=== PATIENT | male | born 1965 | race Caucasian/White ===

== ENCOUNTER 2021-10-28 00:22 | Day surgery (SDC) | payer OTHER, SELFPAY ==
[2021-10-11 13:31] VITALS: BMI 27.3
--- NOTE | 2021-10-12 09:17 | PC.NURSE ---
Addendum entered by Rosmery Rubio RN 10/12/21 09:18: Also instructed patient to take Levothyroxine with sip of water on a.m. of colonoscopy 10/28/21. Original Note: Patient states he has not received prep instructions in the mail. Instructed patient on printing instructions from website and patient voiced his understanding and ability to print instructions.
[2021-10-28 08:25] VITALS: BP 131/100; PULSE 97; RESP 18; TEMP 36.2; O2SAT 99
[2021-10-28] MEDS: LACTATED RINGERS 1,000 ML 150 ML IV CONT (08:47)
--- NOTE | 2021-10-28 08:55 | P.CONGI_ITS ---
Assessment and Plan Assessment and plan (1) Internal and external prolapsed hemorrhoids: Code(s): K64.8 - Other hemorrhoids Status: Acute Assessment and Plan: Hemorrhoids are currently followed by surgery. Recommend high-fiber diet. Anusol or preparation H may help soothe any discomfort. (2) History of colon polyps: Code(s): Z86.010 - Personal history of colonic polyps Status: Acute Assessment and Plan: Patient gives a history of colon polyps removed from the colon 5 years ago at a different facility in [place]. Histology not available for review. Plan for follow-up colonoscopy now and consider this a 5 year intervals. GI Consult Note Consult date/time: 10/28/21 08:55 Reason for consult: History of colon polyps. HPI: Franck Turner is a 55 year old male Presents for neoplasia screening colonoscopy. Patient's current weight appetite and bowel movements are normal. Patient denies abdominal pain. He has had no bleeding. Family history is noncontributory. Patient has a history of a colon polyp removed in [place] 5 years ago. He presents today for follow-up colonoscopy. He reports his current weight appetite bowel movements are normal. He does have known internal and external hemorrhoids currently followed by surgery surgery is being con sidered in the future possibly. Review of Systems Review of Systems: Review of systems noncontributory. 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 Spiritual care concerns: No Meds Home Medications and Allergies Home Medications Medication Instructions Recorded Confirmed Type levothyroxine 75 mcg tablet 75 mcg PO DAILY #90 tabs 11/01/20 10/12/21 Rx aspirin 81 mg capsule 81 mg PO DAILY 09/29/21 10/12/21 History Allergies Allergy/AdvReac Type Severity Reaction Status Date / Time No Known Allergies Allergy Verified 10/28/21 08:21 Vital Signs Vital Signs - 24 hr 10/28/21 08:25 Temperature 97.1 F L Pulse Rate 97 Respiratory Rate 18 Blood Pressure 131/100 H Pulse Oximetry 99 Oxygen Delivery Room Air Exam Narrative: Physical exam reveals patient to be alert. Vital signs stable. HEENT exam is unremarkable. Patient is anicteric. Lungs are clear to auscultation and percussion. Heart is without murmur or extra sounds. Abdomen bowel sounds are present soft nontender with no organomegaly. Digital external rectal exam confirms external hemorrhoids.
[2021-10-28] MEDS: SIMETHICONE ORAL SUSPENSION 20 MG/0.3 ML 30 ML BOTTLE 0.6 ML IRRIGATION (09:51)
[2021-10-28 10:05] VITALS: BP 100/57; PULSE 69; RESP 16; O2SAT 94
[2021-10-28 10:15] VITALS: BP 108/68; PULSE 76; RESP 23; O2SAT 98
[2021-10-28 10:25] VITALS: BP 114/69; PULSE 72; RESP 20; O2SAT 100
== END 2021-10-28 10:36 | disposition home or self-care (01) ==
PROVIDERS: PCP Family Medicine; Visit Provider Internal Medicine Gastroenterology
PROC: 0DJD8ZZ Inspection of Lower Intestinal Tract, Via Natural or Artificial Opening Endoscopic (ICD-10-PCS; CPT 45378; principal; 2021-10-28 09:30)
DX: Z12.11 Encounter for screening for malignant neoplasm of colon (principal); K57.30 Diverticulosis of large intestine without perforation or abscess without bleeding; K64.8 Other hemorrhoids; K64.4 Residual hemorrhoidal skin tags; Z86.010 Personal history of colon polyps
CPT/HCPCS: 45378; J2704; J7120

== ENCOUNTER 2021-12-21 00:26 | Day surgery (SDC) | payer OTHER, SELFPAY ==
--- NOTE | 2021-12-05 17:14 | PM.SD2 ---
Same Day Admit/Disch: HPI History of Present Illness Chief complaint: internal and external hemorrhoids Narrative: Franck Turner is a 56 year old male Who has had hemorrhoids for a long time but recently they have been much larger seeming to have prolapsed more. They also are hygiene problem. He was seen in the office and found to have a stage III internal and external hemorrhoid with a large external component in the left lateral position. He recently had a colonoscopy on 10/28/2021. It was basically negative. He is taken to surgery now for hemorrhoidectomy. 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 Spiritual care concerns: No Same Day Admit/Disch: Med Pre-admit Medications Home Medications Medication Instructions Recorded Confirmed Type aspirin 81 mg capsule 81 mg PO DAILY 09/29/21 10/12/21 History levothyroxine 75 mcg tablet See Rx Instructions .Route 11/23/21 Rx .COMPLEX #90 tabs Exam Const: General: comfortable, no acute distress, alert and awake HENMT: Head: normocephalic and atraumatic Mouth: Yes Normal oral and palatal mucosa present Eyes: Conjunctivae: conjunctivae normal Pupils: Equal, round and reactive pupils present EOM: EOMs intact bilaterally Neck: Neck: normal visual inspection, no lymphadenopathy and nontender Resp: Effort & Inspection: normal respiratory effort Auscultation: clear to auscultation bilaterally Cardio: Rate: regular rate Rhythm: regular rhythm Heart sounds: no gallops, no murmurs and no rubs GI: Inspection: non-distended GI Palp: Yes Soft to palpation, No Tenderness to palpation present (GI), No Hepatomegaly present and No Splenomegaly present Rectal Exam: normal sphincter tone, External hemorrhoid(s) present, Internal hemorrhoid(s) present ( Stage III associated with a large external hemorrhoid left lateral positi) and No mass Skin: Lesions: no lesions Rashes: no rashes Neuro: General: no focal motor deficits and CN's II-XI intact bilaterally Cranial nerves: Yes Equal, round and reactive pupils present, Yes Bilaterally intact EOM present, Yes facial symmetry and Yes Midline tongue present Speech: normal speech Motor exam (neuro): 5/5 motor strength present throughout and Motor abnormalities not present Extrem: General: no clubbing, cyanosis or edema and edema Psych: Affect: normal affect Thought process: Normal thought process present Insight: Good insight present (Psych) DS: Summary Time Spent with Patient Time attestation: Total time spent providing and/or coordinating discharge services: DS: Admitting Diagnosis Discharge Date 12/08/2021 Admitting Diagnosis bleeding prolapsed internal and external hemorrhoids, single complex- plan to proceed with excision under anesthesia. The procedure the risks the benefits have been discussed. All questions were answered. He understands and agrees to go ahead. Discharge Plan Discharge Patient Disposition: Home, Self-Care Stand Alone Forms: General Discharge Instructions Discharge Medications: No Action aspirin 81 mg capsule 81 mg PO DAILY levothyroxine 75 mcg tablet See Rx Instructions .ROUTE .COMPLEX Qty: 90 0RF Dose Instruction: TAKE 1 TABLET BY MOUTH RIA
[2021-12-12 13:54] VITALS: BMI 26.6
--- NOTE | 2021-12-12 14:00 | PC.NURSE ---
Report to the Outpatient Waiting Room, entrance under the green pavilion located off [facility], at time _0630_ on date _[id number]_. OR Time: _0830_. - You and your visitor will be asked a series of questions to screen for COVID 19 for your protection. - Only one visitor is allowed at this time. - The patient visitor is requested to leave or wait in car when not with patient. - A mask is required within the hospital. Patients may have clear liquids (water, carbonated beverages, clear teas, apple juice) until 3 hours prior to surgery with a maximum of 20 ounces. - No food from midnight until time of surgery Take the following medications with a SIP of water the morning of surgery: ____Levothyroxine Medications to discontinue per physician None Date to take last dose Please no make-up, nail georgian, hairspray, perfume, deodorant, or body powder the day of surgery. No jewelry (including any body piercings) or valuables the day of surgery, leave them at home. Please take a shower or bath the night before, or the morning of, surgery with an antibacterial soap. Wear comfortable, loose fitting clothing. - Jewelry must be removed prior to entering the operating room. Rings and piercings that are not removed may be cut off. - The hospital will not accept responsibility for valuables. - Please leave all valuables, including medications, at home the day of surgery. If you are going home after surgery, a licensed furniture mover driver must drive you home. - NO public transportation without another adult. - We recommend that an adult stay with you for 24 hours following discharge. - We also recommend that you do not drive, make important decision, drink alcoholic beverages, or take any drugs that were not prescribed by your health care provider for at least 24 hours after your discharge time. Follow any additional instructions given to you from your surgeon. If you or anyone in your household have experienced Covid symptoms in the past week, please notify your surgeon or the nurse liaison at the phone number below for possible testing. Telephone instructions given to ___Patient and asked if any additional questions and then verbalized understanding. Patient advised to call surgeon office or pre surgery nurse liaison [phone] if any additional questions.
--- NOTE | 2021-12-20 10:26 | PM.SD2 ---
Same Day Admit/Disch: HPI History of Present Illness Chief complaint: internal and external hemorrhoids Narrative: Franck Turner is a 56 year old male who has noticed chronic protrusion with intermittent bleeding of tissue from his rectum. He was seen in the office and found to have prolapsed left lateral internal and external hemorrhoids. He is taken to surgery now for excision. 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 Spiritual care concerns: No Same Day Admit/Disch: Med Pre-admit Medications Home Medications Medication Instructions Recorded Confirmed Type aspirin 81 mg capsule 81 mg PO DAILY 09/29/21 12/21/21 History levothyroxine 75 mcg tablet See Rx Instructions .Route 11/23/21 12/21/21 Rx .COMPLEX #90 tabs hydrocodone 5 mg-acetaminophen 325 1 - 2 tablet PO Q6H PRN pain #25 12/21/21 Rx mg tablet tabs ketorolac 10 mg tablet 10 mg PO Q6H 4 days #16 tabs 12/21/21 Rx mineral oil 15 ml PO BID #473 mL 12/21/21 Rx psyllium husk (with sugar) 3.4 1 tbsp PO BID #60 packets 12/21/21 Rx gram oral powder packet (Metamucil (with sugar)) Exam Const: General: comfortable, no acute distress, alert and awake HENMT: Head: normocephalic and atraumatic Mouth: Yes Normal oral and palatal mucosa present Eyes: Conjunctivae: conjunctivae normal Pupils: Equal, round and reactive pupils present EOM: EOMs intact bilaterally Neck: Neck: normal visual inspection, no lymphadenopathy and nontender Resp: Effort & Inspection: normal respiratory effort Auscultation: clear to auscultation bilaterally Cardio: Rate: regular rate Rhythm: regular rhythm Heart sounds: no gallops, no murmurs and no rubs GI: Inspection: non-distended GI Palp: Yes Soft to palpation, No Tenderness to palpation present (GI), No Hepatomegaly present and No Splenomegaly present Rectal Exam: normal sphincter tone, External hemorrhoid(s) present, Internal hemorrhoid(s) present (Prolapsed left lateral internal and external hemorrhoids) and No mass Skin: Lesions: no lesions Rashes: no rashes Neuro: General: no focal motor deficits and CN's II-XI intact bilaterally Cranial nerves: Yes Equal, round and reactive pupils present, Yes Bilaterally intact EOM present, Yes facial symmetry and Yes Midline tongue present Speech: normal speech Motor exam (neuro): 5/5 motor strength present throughout and Motor abnormalities not present Extrem: General: no clubbing, cyanosis or edema and edema Psych: Affect: normal affect Thought process: Normal thought process present Insight: Good insight present (Psych) DS: Summary Time Spent with Patient Time attestation: Total time spent providing and/or coordinating discharge services: DS: Admitting Diagnosis Discharge Date 12/21/2021 Admitting Diagnosis Prolapsed bleeding internal and external hemorrhoids, single complex in the left lateral position. Plan to proceed with excision. Procedure the risks benefits have been discussed with the patient. He understands and agrees to proceed. DS: Discharge Diagnosis Discharge Diagnosis (1) Internal and external prolapsed hemorrhoids: Code(s): K64.8 - Other hemorrhoids Status: Acute Discharge Plan
[2021-12-21 06:40] VITALS: BP 134/87; PULSE 81; RESP 18; TEMP 36.3; O2SAT 99
--- NOTE | 2021-12-21 06:47 | P.PNAN_ITS ---
Anes - Initial Pre Proc Eval Procedure: Operation Date: 12/21/21 08:30 Proposed Procedures p Excision Single Complex Internal and External Hemorrhoids - Hernan Rodriguez MD Date/Time: 12/21/21 06:47 Surgeon: Hernan Rodriguez MD Pre Op Diagnosis: internal and external hemorrhoids Patient Data Age: 56 Gender: M Height: 1.75 m Weight: 81.8 kg Allergies Allergy/AdvReac Type Severity Reaction Status Date / Time No Known Allergies Allergy Verified 12/12/21 13:53 Home Medications Medication Instructions Recorded Confirmed Type aspirin 81 mg capsule 81 mg PO DAILY 09/29/21 12/12/21 History levothyroxine 75 mcg tablet See Rx Instructions .Route 11/23/21 12/12/21 Rx .COMPLEX #90 tabs Patient hx anesthesia problems: none Family hx anesthesia problems: none Results Review: All pre-operative results and documents have been reviewed as part of the pre- operative evaluation. 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 Informed Consent: The patient's anesthetic plan and its attendant risks and benefits were discussed with the patient/family/POA. Questions were solicited and answers provided to the satisfaction of the patient/family/POA.
[2021-12-21] MEDS: ACETAMINOPHEN 500 MG TABLET 1000 MG PO (07:01)
[2021-12-21] MEDS: KETOROLAC 15 MG/ML VIAL (*BKC) IV PUSH (07:01)
[2021-12-21] MEDS: LACTATED RINGERS 1,000 ML 30 ML IV CONT (07:01)
--- NOTE | 2021-12-21 07:46 | WPDHPUPDATE1 ---
History and Physical Update Update Date/Time: 12/21/21 07:46 History and Physical has been reviewed, including an updated exam of the patient. There are NO changes in the patient's condition. Risks, benefits, and alternatives have been discussed and questions answered. Patient agrees to proceed with procedure.
[2021-12-21] MEDS: ceFAZolin 2 GM/D5W 50 ML 2 GM/50 ML BAG IVPB (08:12)
[2021-12-21] MEDS: BUPIVACAINE HCL 0.5% PF 30 ML VIAL INFILTRATE (08:36)
--- NOTE | 2021-12-21 09:01 | P.OP_ITS ---
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 He is taken to surgery now for excision. Findings No other significant anorectal pathology noted Description of Procedure Patient was taken to surgery and anesthesia was introduced. He was placed in prone ian-knife position. The buttocks were taped apart. Prep and drape was carried out. Hill-Amaro anoscope were used to inspect the hemorrhoids and the rest of the anal canal and distal rectum. Local anesthesia was infiltrated using 20 cc deep subdermal and 20 cc intra sphincteric. With the Hill-Amaro anoscope in place, the left lateral hemorrhoidal complex of internal and external hemorrhoids was excised. Cautery was used for some hemostasis. The wound was closed 1st with sub mucosal interrupted 4-0 Vicryl suture. A running 4-0 chromic suture was then used. Hemostasis was good. I recheck the anal canal in all looked satisfactory. The wound was dressed with Xeroform gauze fluffs and Medipore tape. Patient was returned to a supine position, awakened and taken to outpatient surgery in good condition. Sponge and needle counts were correct x2. Estimated Blood Loss -5 Drains No Packing No Pathology Yes (Left lateral internal and external hemorrhoids) Complications No immediate complications Condition Stable Disposition Same day [facility] Billing Surgery - Charge Forward: Surgery Billing (Excision left lateral single complex internal and external hemorrhoids)
[2021-12-21 09:04] VITALS: BP 128/91; PULSE 72; RESP 12; O2SAT 100
[2021-12-21 09:34] VITALS: BP 121/84; PULSE 73; RESP 12
[2021-12-21 10:04] VITALS: BP 135/91; PULSE 68; RESP 12
== END 2021-12-21 10:15 | disposition home or self-care (01) ==
PROVIDERS: PCP Family Medicine; Visit Provider Surgery
PROC: (CPT 46255; principal; 2021-12-21 08:30)
DX: K64.8 Other hemorrhoids (principal); K64.4 Residual hemorrhoidal skin tags; Z79.82 Long term (current) use of aspirin
CPT/HCPCS: 46255; 88304; A9270; C9290; J0690; J1885; J2250; J2704; J3010; J7120

== ENCOUNTER 2022-08-01 09:25 | Outpatient (CLI) | payer OTHER, SELFPAY ==
[2022-08-01 18:34] LABS: Basophils Percent Auto 0.6 % (0.2-1.2); Eosinophils Absolute Auto 0.1 K/mm3 (0-0.3); Eosinophils Percent Auto 2.1 % (0-4.4); Hematocrit 50.3 % (42.0-52.0); Hemoglobin 16.6 g/dL (14.0-18.0); Immature Granulocyte Absolute 0.01 K/mm3 (0.00-0.031); Immature Granulocyte Percent A 0.2 % (0-0.5); Lymphocytes Absolute Auto 1.62 K/mm3 (0.9-3.2); Lymphocytes Percent Auto 31.2 % (18.3-44.2); Mean Corpuscular Hemoglobin 31.3 pg (26-34); Mean Corpuscular Volume 94.7 fl (80-100); Monocytes Absolute Auto 0.5 K/mm3 (0.1-0.6); Monocytes Percent Auto 10.2 % (2.6-8.5); Neutrophils Absolute Auto 2.9 K/mm3 (1.3-6.7); Neutrophils Percent Auto 55.7 % (45.5-73.1); Platelet Count Result 270 k/mm3 (150-375); Red Blood Count 5.31 M/mm3 (4.6-6.20); Red Cell Distribution Width 14.6 % (11.5-14.5); White Blood Count 5.2 K/mm3 (4.5-10.0)
[2022-08-01 19:38] LABS: Vitamin D 25 Hydroxy 47.8 ng/mL
[2022-08-01 20:22] LABS: Alanine Aminotransferase 27 U/L (6-50); Albumin Level 4.7 g/dL (3.5-5.1); Alkaline Phosphatase 62 U/L (38-126); Anion Gap 6 mmol/L (8-16); Aspartate Amino Transferase 70 U/L (17-59); Blood Urea Nitrogen 20 mg/dL (9-20); Carbon Dioxide 28 mmol/L (22-30); Chloride 106 mmol/L (98-107); Cholesterol 182 mg/dL (0-200); Estimated Glomerular Filt Rate > 60; Glucose 78 mg/dL (65-110); HDL Direct 34 mg/dL; Potassium 4.3 mmol/L (3.4-5.0); Sodium 140 mmol/L (137-145); Triglycerides 97 mg/dL (<150)
[2022-08-01 20:33] LABS: LDL Cholesterol Direct 119 mg/dL
[2022-08-01 20:48] LABS: Prostate Specific Antigen 1.5 ng/mL (< OR = 4.0)
== END 2022-08-01 09:26 | disposition home or self-care (01) ==
LOC: ANHGOSHLAB 09:27
PROVIDERS: PCP Family Medicine; Visit Provider Family Medicine
DX: E78.5 Hyperlipidemia, unspecified (principal); E03.9 Hypothyroidism, unspecified; Z79.899 Other long term (current) drug therapy; E53.8 Deficiency of other specified B group vitamins; E55.9 Vitamin D deficiency, unspecified; Z12.5 Encounter for screening for malignant neoplasm of prostate
CPT/HCPCS: 36415; 80053; 80061; 82306; 82607; 84153; 84443; 85025; G0103